=== PATIENT | female | born 1945 | race Two or more races ===

== ENCOUNTER 2023-03-23 16:19 | Emergency (ER) | payer MEDICARE, OTHER ==
[2023-03-23 17:10] VITALS: BMI 24.1
[2023-03-23] MEDS ORDERED: ACETAMINOPHEN 1000 MG/100 ML BAG IVPB ONE (17:56)
[2023-03-23] MEDS ORDERED: METOCLOPRAMIDE HCL INJECTION 10 MG/2 ML VIAL IVPB ONE (17:56)
[2023-03-23] MEDS ORDERED: SODIUM CHLORIDE 0.9% 500 ML INFUS.BAG IV ONE (17:56)
[2023-03-23 19:28] LABS: PH,URINE 5.5 (5.0-8.0); URINE APPEARANCE CLEAR; URINE BILIRUBIN NEGATIVE (NEGATIVE); URINE COLOR YELLOW; URINE GLUCOSE (UA) NEGATIVE (NEGATIVE); URINE KETONE NEGATIVE (NEGATIVE); URINE LEUK ESTERASE NEGATIVE (NEGATIVE); URINE NITRITE NEGATIVE (NEGATIVE); URINE PROTEIN NEGATIVE (NEGATIVE); URINE UROBILINOGEN 0.2 mg/dL (0.2-1.0)
[2023-03-23] MEDS ORDERED: KETOROLAC TROMETHAMINE 15 MG/ML VIAL IVPUSH ONE (20:01)
[2023-03-23 20:36] LABS: BASO % 0.7 % (0-2.0); EOS % 3.4 % (0-4.5); HEMATOCRIT 42.2 % (32.4-45.2); HEMOGLOBIN 13.8 GM/dL (10.7-15.3); LYMPH % 40.1 % (8-40); MCH 25.5 pg (25.7-33.7); MCHC 32.6 g/dl (32.0-36.0); MEAN CELL VOLUME 78.3 fl (80-96); MEAN PLT VOLUME 9.1 fl (7.5-11.1); NEUT % 46.8 % (42.8-82.8); PLATELET COUNT 254 10^3/uL (134-434); RBC 5.39 M/mm3 (3.60-5.2); RDW 14.8 % (11.6-15.6); WHITE BLOOD COUNT 7.6 K/mm3 (4.0-10.0)
[2023-03-23 20:50] LABS: CHLORIDE 105 mmol/L (98-107); SODIUM 135 mmol/L (136-145)
[2023-03-23 20:52] LABS: CALCIUM 8.8 mg/dL (8.5-10.1)
[2023-03-23 20:54] LABS: CO2 26 mmol/L (21-32); GLUCOSE,RANDOM 86 mg/dL (74-106)
[2023-03-23 20:56] LABS: CREATININE 0.8 mg/dL (0.55-1.3)
[2023-03-23 20:58] LABS: BILIRUBIN,TOTAL 3.3 mg/dL (0.2-1); TOT PROT 8.2 g/dl (6.4-8.2)
[2023-03-23 20:59] LABS: ALK PHOS 94 U/L (45-117)
[2023-03-23 21:06] LABS: ANION GAP 4 mmol/L (4-13); POTASSIUM 9.3 mmol/L (3.5-5.1); SGOT/AST 101 U/L (15-37); SGPT/ALT 38 U/L (13-61)
[2023-03-23 22:34] LABS: POTASSIUM 3.9 mmol/L (3.5-5.1)
[2023-03-23 22:37] LABS: BLOOD UREA NITROGEN 14.8 mg/dL (7-18)
[2023-03-23] MEDS ORDERED: ACETAMINOPHEN INJECTION 100 ML IVPB ONE (22:38)
[2023-03-23] MEDS ORDERED: KETOROLAC TROMETHAMINE 15 MG/ML VIAL ONE (22:38)
[2023-03-23 22:40] LABS: CREATININE 0.7 mg/dL (0.55-1.3)
[2023-03-24 01:13] VITALS: BP 158/77; PULSE 62; RESP 18; TEMP 98.1
== END 2023-03-24 01:38 | disposition home or self-care (01) ==
LOC: JER 16:19
PROC: 3E033NZ Introduction of Analgesics, Hypnotics, Sedatives into Peripheral Vein, Percutaneous Approach (ICD-10-PCS; principal; 2023-03-23)
PROC: 3E0333Z Introduction of Anti-inflammatory into Peripheral Vein, Percutaneous Approach (ICD-10-PCS; 2023-03-23)
DX: R51.9 Headache, unspecified (principal); R11.2 Nausea with vomiting, unspecified; H53.71 Glare sensitivity; Z20.822 Contact with and (suspected) exposure to COVID-19
CPT/HCPCS: 0241U-QW; 36415; 70551-TC; 80048; 80053; 81003; 85025; 87086; 93005; 93010; 99285-25